=== PATIENT | female | born 1955 | race Caucasian/White ===

== ENCOUNTER → 2021-05-20 | Day surgery (SDC) | payer OTHER ==
[~2021-05-20] VITALS: Ht 152.4 cm; Wt 102.1 kg
[~2021-05-20] MED LIST: CRESTOR10 MG PO; LOSARTAN-HCTZ1 EAC1 PO; METFORMIN HCL500 M3 PO; SERTRALINE HCL100 MG PO; VITAMIN D3 PO
[2021-05-20 11:56] LABS: HCT 42.2 % (37.0-47.0); HGB 14.1 g/dl (12.5-16.0); MCH 29.2 pg (25.0-31.0); MCHC 33.4 g/dL (32.0-36.0); MCV 87.4 fL (78.0-100.0); MPV 9.8 fL (6.0-9.5); RBC 4.83 M/uL (4.20-5.40); RDW 15.8 % (11.5-14.0); WBC 7.7 K/uL (4.0-10.5)
[2021-05-20 12:22] LABS: ALBUMIN 3.8 g/dL (3.4-5.0); BILIRUBIN - TOTAL 0.4 mg/dL (0.2-1.0); BUN/CREAT RATIO (CALC) 23.6 RATIO; CREATININE 0.55 mg/dL (0.51-0.95); GLOBULIN (CALCULATION) 3.6 g/dL; POTASSIUM 3.6 mmol/L (3.5-5.1); TOTAL PROTEIN 7.4 g/dL (6.4-8.2)
== END | disposition home or self-care (01) ==
LOC: FAS 10:54
PROVIDERS: Orthopaedic Surgery
DX: M65.332 Trigger finger, left middle finger (principal); E11.9 Type 2 diabetes mellitus without complications; I10 Essential (primary) hypertension; E78.00 Pure hypercholesterolemia, unspecified; F17.210 Nicotine dependence, cigarettes, uncomplicated; Z79.84 Long term (current) use of oral hypoglycemic drugs; Z79.899 Other long term (current) drug therapy
CPT/HCPCS: 36415; 71045; 80053; J1100; J1885; J2250; J2405; J2704; J3010; J7120

== ENCOUNTER → 2021-10-10 | Day surgery (SDC) | payer OTHER ==
[~2021-10-10] VITALS: Ht 152.4 cm; Wt 99.9 kg
[~2021-10-10] MED LIST changes: +CYCLOBENZAPRINE10 MG PO; +MOBIC7.5 MG PO
[2021-10-10 08:32] LABS: HCT 42.2 % (37.0-47.0); MCHC 33.2 g/dL (32.0-36.0); MCV 87.4 fL (78.0-100.0); MPV 9.9 fL (6.0-9.5); RBC 4.83 M/uL (4.20-5.40); RDW 15.9 % (11.5-14.0); WBC 9.7 K/uL (4.0-10.5)
[2021-10-10 09:54] LABS: ALBUMIN 3.9 g/dL (3.4-5.0); BILIRUBIN - TOTAL 0.3 mg/dL (0.2-1.0); BUN/CREAT RATIO (CALC) 25.9 RATIO; CREATININE 0.54 mg/dL (0.51-0.95); GLOBULIN (CALCULATION) 3.8 g/dL; POTASSIUM 3.7 mmol/L (3.5-5.1); TOTAL PROTEIN 7.7 g/dL (6.4-8.2)
== END | disposition home or self-care (01) ==
LOC: FAS 07:51
PROVIDERS: Surgery
DX: Z12.11 Encounter for screening for malignant neoplasm of colon (principal); K57.30 Diverticulosis of large intestine without perforation or abscess without bleeding; I10 Essential (primary) hypertension; E11.9 Type 2 diabetes mellitus without complications; Z86.010 Personal history of colon polyps; Z96.653 Presence of artificial knee joint, bilateral
CPT/HCPCS: 36415; 80053; J0690; J1610; J2250; J2704; J7120